=== PATIENT | female | born 1970 | race Caucasian/White ===

== ENCOUNTER 2017-05-15 10:19 | Emergency (ER) | payer OTHER ==
[~2017-05-15] VITALS: Ht 162.6 cm; Wt 63.5 kg
[2017-05-15] MEDS: IV NS 0.9% 1,000 ML BAG IV ONE (10:50)
[2017-05-15] MEDS ORDERED: ONDANSETRON HCL/PF 4 MG/2 ML VIAL ONE (10:51)
[2017-05-15] MEDS: ONDANSETRON HCL/PF 4 MG/2 ML VIAL IVP ONE (10:55)
--- NOTE | 2017-05-15 11:00 | NUR ---
[id number] FROM HOME C/O N/V ABD CRAMPING, [id number] FROM HOME C/O N/V ABD CRAMPING. NAD NOTED, VSS, RESP EVEN AND UNLABORED, PT PUT ON MONITOR.
[2017-05-15] MEDS ORDERED: MORPHINE SULFATE INJ 4 MG/ML DISP.SYRIN ONE (11:02)
[2017-05-15] MEDS: MORPHINE SULFATE INJ 2 MG/ML DISP.SYRIN IV ONE (11:03)
--- NOTE | 2017-05-15 11:04 | NUR ---
REFUSED MORPHINE ORDERED BY THE ER PHYSICIAN.
[2017-05-15 11:09] LABS: BASOPHILS # (AUTO) 0.4 /CMM (0.0-0.2); BASOPHILS % (AUTO) 2.8 % (0.0-2.0); EOSINOPHILS # (AUTO) 0.2 /CMM (0.0-0.7); EOSINOPHILS % (AUTO) 1.4 % (0.0-6.0); HEMATOCRIT 43 % (33-45); HEMOGLOBIN 14.8 g/dL (11.5-14.8); LYMPHOCYTES # (AUTO) 1.6 /CMM (0.8-4.8); LYMPHOCYTES % (AUTO) 12.3 % (20.0-44.0); MEAN CORPUSCULAR HEMOGLOBIN 32 PG (26.0-33.0); MEAN CORPUSCULAR HGB CONC 34 g/dl (31.0-36.0); MEAN CORPUSCULAR VOLUME 95 fL (82-100); MONOCYTES # (AUTO) 0.6 /CMM (0.1-1.30); MONOCYTES % (AUTO) 4.7 % (2.0-12.0); NEUTROPHILS # (AUTO) 9.8 /CMM (1.8-8.9); NEUTROPHILS % (AUTO) 78.8 % (43.0-81.0); PLATELET COUNT (AUTO) 348 /CMM (150-450); RDW COEFFICIENT OF VARIATION 13.2 (11.5-15.0); RED BLOOD CELL COUNT(AUTO) 4.58 MIL/uL (4.0-5.2); WHITE BLOOD COUNT (AUTO) 12.6 K/uL (4.3-11.0)
[2017-05-15 11:16] LABS: CALCIUM, SERUM 9.1 mg/dL (8.5-10.1); CREATININE 0.9 mg/dL (0.6-1.3); POTASSIUM 3.8 mmol/L (3.5-5.1)
[2017-05-15 11:22] LABS: ALBUMIN 3.8 g/dL (3.4-5.0); BILIRUBIN,DIRECT 0.1 mg/dL (0.0-0.2); BILIRUBIN,TOTAL 0.5 mg/dL (0.2-1.0); TOTAL PROTEIN, SERUM 7.4 g/dL (6.4-8.2)
[2017-05-15] MEDS ORDERED: FENTANYL PF 100MCG/2ML AMPUL ONE (11:29)
[2017-05-15] MEDS: FENTANYL PF 100MCG/2ML AMPUL IV ONE (11:30)
--- NOTE | 2017-05-15 11:45 | NUR ---
PT UNABLE TO PROVIDE URINE AT THIS TIME, WILL TRY AGAIN IN 5 MINUTES
[2017-05-15 12:31] LABS: APPEARANCE,URINE Cloudy (CLEAR); BILIRUBIN,URINE Negative (NEGATIVE); BLOOD, URINE Negative Ery/uL (NEGATIVE); COLOR,URINE Yellow (YELLOW); KETONES,URINE 40 (NEGATIVE); LEUKOCYTE ESTERASE ,URINE Negative (NEGATIVE); NITRITE, URINE Negative (NEGATIVE); PROTEIN,URINE Trace mg/dl (NEGATIVE); UGLUCOSE Negative (NEGATIVE); UROBILINOGEN,URINE 0.2 EU/dL (0.2)
[2017-05-15 12:34] LABS: PH,URINE >9.0 (5.0-8.0)
[2017-05-15 12:44] LABS: BACTERIA,URINE Rare /HPF (None Seen); RBC,URINE 0-2 /HPF (0-2); SQUAMOUS EPITHELIAL CELL,UR Few /HPF (None Seen); WBC,URINE 0-2 /HPF (0-3)
[2017-05-15] MEDS ORDERED: FAMOTIDINE (20 MG) 20 MG TABLET ONE (13:29)
[2017-05-15] MEDS: FAMOTIDINE (20 MG) 20 MG TABLET PO ONE (13:32)
[2017-05-15] MEDS: LORAZEPAM INJ 2 MG/ML VIAL IV ONE (14:45)
[2017-05-15] MEDS ORDERED: LORAZEPAM INJ 2 MG/ML VIAL ONE (14:48)
--- NOTE | 2017-05-15 16:33 | NUR ---
RECIEVED A CALL FROM [facility]. BURROUGHS GOING TO [facility], ROOM [address]. GIVE REPORT TO [place] AT [phone] ETA FOR TRANSPORT IS 45 MINUTES
--- NOTE | 2017-05-15 16:48 | NUR ---
Patient is resting comfortably in bed with eyes closed. Easily aroused. VSS
--- NOTE | 2017-05-15 17:37 | NUR ---
[facility] will call [facility] for report.
--- NOTE | 2017-05-15 18:31 | NUR ---
CALLED [facility] DENITRATOR TACHO TO CHECK ETA FOR TRANSPORT. PER TACHO TRANSPORT WILL BE HERE AT 1930
--- NOTE | 2017-05-15 18:43 | NUR ---
Patient is resting comfortably in bed with eyes closed. Easily aroused. VSS
--- NOTE | 2017-05-15 19:38 | NUR ---
RECEIVED A CALL FROM [facility] AND WAS INFORMED THE TRANSPORT WILL BE DELAYED UNTIL 2029
--- NOTE | 2017-05-15 20:20 | NUR ---
SPOKE WITH JOSE ALFREDO FROM [facility] TO FOLLOW UP ON ETA. WAS TOLD TRANSPORT WILL BE DELAYED BY ANOTHER HOUR
--- NOTE | 2017-05-15 20:26 | NUR ---
SPOKE WITH SUZIE DISPATCHER AT [facility]. OBTAINED TRIP#[id number]. WAS TOLD THE SOONEST A CREW WILL BE AVAILABLE IS IN 30 MINUTES.
--- NOTE | 2017-05-15 20:27 | NUR ---
TACHO FILM VAULT SUPERVISOR FROM [facility] CALLED BACK TO FOLLOW UP ON THE STATUS OF THE TRANSPORT. INFORMED HER OF THE DELAYS FROM THE [facility] AMBULANCE PROVIDER.
--- NOTE | 2017-05-15 21:09 | NUR ---
CALLED [facility] TO FOLLOW UP ON ETA OF CREW. PER DISPATCHER CREW WILL BE HERE IN 5 MINUTES.
--- NOTE | 2017-05-15 21:25 | NUR ---
Patient is resting comfortably in bed with eyes closed. Easily aroused. VSS
--- NOTE | 2017-05-15 21:28 | NUR ---
SPOKE WITH SUZIE DISPATCHER AT THE [facility] TO CHECK ON STATUS OF THE CREW. WAS TOLD CREW WAS OUTSIDE AND THAT HE WILL TELL THEM TO COME INSIDE.
--- NOTE | 2017-05-15 21:43 | NUR ---
AMBULANCE CREW STILL HAS NOT ARRIVED IN OUR ED
--- NOTE | 2017-05-15 22:00 | NUR ---
AMBULANCE CREW IS YET TO ARRIVE ON SCENE
--- NOTE | 2017-05-15 22:08 | NUR ---
SPOKE WITH [facility] RESIDENT TO FOLLOW UP ON ETA OF CREW. WAS TOLD BY PEDRITO THAT THE CREW HAD ARRIVED ON SCENE TO UNSTABLE VITALS. I REITERATED THAT THIS WAS NOT CORRECT. THAT NO CREW HAS BEEN ON SCENE FOR THIS PATIENT, NOR HAVE THE PATIENT'S VITALS BEEN UNSTABLE.
--- NOTE | 2017-05-15 22:12 | NUR ---
SPOKE WITH [facility] RESIDENT AND SUZIE THE DISPATCHER ONCE AGAIN. WAS TOLD THAT THERE WAS A TECHNICAL ERROR IN THE SYSTEM CAUSING ISSUES WITH THE TRANSPORT AND THE CREW WAS ON SCENE FOR ANOTHER CALL. PER SUZIE THE CREW WILL BE COMING TO THE ER FROM THE OTHER CALL.
[2017-05-15 22:34] VITALS: BP 122/67
== END 2017-05-15 22:46 ==
LOC: ER 10:21
DX: R10.84 Generalized abdominal pain (principal); R11.2 Nausea with vomiting, unspecified; R19.7 Diarrhea, unspecified; Z88.5 Allergy status to narcotic agent; Z88.6 Allergy status to analgesic agent
CPT/HCPCS: 36415; 80048; 80076; 81001; 83690; 84703; 85025; 87081; 96361; 96374 ×2; 96375; 99285; A4606; J2060; J2405; J3010; J7030; Z7610; 81000-TC; J2270